=== PATIENT | female | born 1930 | race Caucasian/White ===

== ENCOUNTER 2016-05-26 00:29 | Emergency (ER) | payer MEDICARE, BC ==
[~2016-05-26] VITALS: Ht 147.3 cm; Wt 69.5 kg
[~2016-05-26 00:29] MED LIST: AMITRIPTYLINE H25 M1 PO; AMOXICILLIN 50500 MG PO; ASPIR-LOW81 MG PO; CELEBREX 200MG200 MG PO; CENTRUM1 TAB PO; COMBIGAN 0.2%-010 ML OP; LASIX 40MG TABL40 MG PO; LORTAB 7.5/5001 TAB; LORTAB 7.5/5001 TAB PO; MOBIC15 MG PO; MVI PO; NEXIUM40 MG PO; NIFEREX-150 FOR1 CA1 PO; TOPROL XL 25MG25 MG PO; TOPROL XL25 MG PO; TOPROL XL50 MG PO; TYLENOL 325MG325 MG PO; WOMEN'S ONE DAI1 TAB PO; ZESTRIL 20MG TA20 MG PO
[2016-05-26 00:33] VITALS: TEMP 99.5
[2016-05-26 01:35] VITALS: BP 139/71; PULSE 73
== END 2016-05-26 01:35 | disposition home or self-care (01) ==
LOC: COL.ER 00:29
DX: R22.32 Localized swelling, mass and lump, left upper limb (principal); Z98.890 Other specified postprocedural states

== ENCOUNTER → 2017-04-14 | Outpatient (CLI) | payer MEDICARE, BC ==
[~2017-04-14] MED LIST changes: +NORCO 325 MG-51 TAB PO; +PROTONIX 40MG T40 MG PO; +WOMEN'S DAILY1 TAB PO; -WOMEN'S ONE DAI1 TAB PO; +ZESTRIL 10MG10 MG PO; +ZOFRAN ODT4 MG PO
[2017-04-14 15:35] LABS: CALCIUM 9.8 mg/dL (8.4-10.2); CREATININE, serum 0.63 mg/dL (0.52-1.25); POTASSIUM 4.4 mmol/L (3.4-5.0)
== END ==
LOC: COL.LAB 11:49
PROVIDERS: Family Medicine
DX: I10 Essential (primary) hypertension (principal)

== ENCOUNTER → 2017-04-19 | Outpatient (CLI) | payer MEDICARE, BC | LOC: COL.RAD 12:40 | DX: R22.1 Localized swelling, mass and lump, neck (principal) ==

== ENCOUNTER 2018-08-23 12:34 | Inpatient (IN) | payer MEDICARE, BC ==
[~2018-08-23] VITALS: Ht 142.2 cm; Wt 61.0 kg
[2018-08-23 12:52] VITALS: BP 143/66; PULSE 102; TEMP 97.5
--- NOTE | 2018-08-23 12:55 | NUR ---
admitted ambulatory to room 324, alert and oriented, PARTS WASHER in and initial assessment compelted
--- NOTE | 2018-08-23 13:02 | NUR ---
PJ Dixon notified of patient's arrival,
[2018-08-23] MEDS ORDERED: AMITRIPTYLINE H10 M1 PO (13:10)
[2018-08-23] MEDS ORDERED: NORCO 325 MG-7.1 TAB PO (13:11)
--- NOTE | 2018-08-23 13:20 | NUR ---
full admission assessment completed, see intervention for further info, has area approx 5cm in right hand that is outline with a marker that is light red and also appears to be echymotic, area to right lower leg is has area approx 15cm x 7cm that is red, denies needs at this time
--- NOTE | 2018-08-23 14:50 | NUR ---
c/o back pain and medicated with hydrocodone 7.5mg 1 tab
--- NOTE | 2018-08-23 16:00 | NUR ---
remains sitting up in recliner, LUIS DANIEL Dorsey was in to see patient, she states the pain pill is helping her back pain as it does at home, instructed on how to order something to eat and verbalizes understanding
[2018-08-23 16:02] VITALS: BP 154/80; PULSE 87; TEMP 97.9
--- NOTE | 2018-08-23 16:33 | NUR ---
INT started to Left forearm and she tolerated well
--- NOTE | 2018-08-23 16:34 | NUR ---
LUIS DANIEL Ramachandran with orthopaedic's paged for consult
[2018-08-23 16:41] LABS: BASO # 0.1 (0.0-0.2); BASO % 0.8 % (0.0-2.0); EOS # 0.2 (0.0-0.7); EOS % 2.9 % (0-4.0); GRAN # 4.1 (1.4-6.5); GRAN % 66.1 % (42.2-75.2); HEMATOCRIT 42.8 % (37.0-47.0); HEMOGLOBIN 14.8 g/dl (12.5-16.0); LYMPH # 1.3 (1.2-3.4); LYMPH % 21.5 % (20.0-51.0); MEAN CELL VOLUME 93 fl (80.0-100.0); MEAN CORPUSCULAR HEMOGLOBIN 32 pg (27.0-31.0); MEAN CORPUSCULAR HGB CONC 35 g/dl (33.0-37.0); MEAN PLATELET VOLUME 9.4 fl (7.4-10.4); MONO # 0.5 (0.1-0.6); MONO % 8.5 % (1.7-9.3); PLATELET COUNT 253 K/mm3 (130-400); RED BLOOD COUNT 4.61 M/mm3 (4.10-5.30); REDCELL DISTRIBUTION WIDTH-CV 11.9 % (11.5-14.5)
[2018-08-23 16:45] LABS: ALBUMIN 4.4 gm/dL (3.5-5.0); BILIRUBIN,TOTAL 0.7 mg/dL (0.0-1.0); CALCIUM 9.9 mg/dL (8.4-10.2); CREATININE, serum 0.63 (0.52-1.25); POTASSIUM 3.9 mmol/L (3.4-5.0); TOTAL PROTEIN 7.4 gm/dL (6.4-8.2)
--- NOTE | 2018-08-23 17:14 | NUR ---
LUIS DANIEL Ramachandran in to see patient
--- NOTE | 2018-08-23 17:54 | NUR ---
Dr Chatman in talking with mary
--- NOTE | 2018-08-23 18:36 | NUR ---
assisted up to bathroom and then back to recliner, IV antibiotic here and started
--- NOTE | 2018-08-23 18:48 | NUR ---
bedside shift report given to SARA Linder
[2018-08-23 19:43] VITALS: BP 128/50; PULSE 88; TEMP 98
--- NOTE | 2018-08-23 20:30 | NUR ---
Pt. sitting up in chair at this time. Pt. is A&OX3, assessment complete. INT to lt. wrist patent. Cat bites noted to rt. wrist and rt. urrutia, area marked, redness has decreased since marked. Pt. reports back pain at a 5 on pain scale at this time. Pt. would like pain meds just not yet. Will give when pt. is ready. Pt denies further needs, call light within reach.
[2018-08-24] VITALS (7 sets, daily range): BP systolic 121–163; BP diastolic 52–72; PULSE 61–88; TEMP 97.7–98.1
--- NOTE | 2018-08-24 06:36 | NUR ---
Pt. slept off and on through the night. Pt. remains A&OX3. INT to lt. wrist remains patent. Pt. reports back pain. Pt. informed that it's not time for pain meds, but will brin when available. Pt. voices understanding. Pt. denies further needs, call light within reach.
--- NOTE | 2018-08-24 06:52 | NUR ---
appears to be sleeping, in bed with eyes closed, resp quiet and easy
--- NOTE | 2018-08-24 07:30 | NUR ---
resting in bed c/o back pain and medicated with hydrocodone 7.5mg 1 tab
--- NOTE | 2018-08-24 08:15 | NUR ---
up in chair, denies needs, will order breakfast soon
--- NOTE | 2018-08-24 08:50 | NUR ---
up in chair and appears to be dozing
--- NOTE | 2018-08-24 09:10 | NUR ---
Sunita CARY in to see patient and then occupational therapy in to work with patient
--- NOTE | 2018-08-24 10:12 | NUR ---
full assessment now completed, see interventions for further info, denies needs
--- NOTE | 2018-08-24 12:02 | NUR ---
c/o back pain and some pain to right leg, medicated with hydrocodone 7/5mg 1 tab, assisted up to bathroom
--- NOTE | 2018-08-24 12:06 | NUR ---
Initial visit; Patient thanked [employer] Transition Teacher for looking in on her and offering comfort, empathy and prayer. [employer] And Transition Teacher will follow up.
--- NOTE | 2018-08-24 13:01 | NUR ---
sitting up in chair eating lunch
--- NOTE | 2018-08-24 13:15 | NUR ---
remains up in chair, had lunch and tolerated well, denies needs
--- NOTE | 2018-08-24 14:19 | NUR ---
LETICIA met with the patient and patient's , Nadir, to discuss discharge plan. The patient lives in [place] with her . She reports independence with ADLs and has a walker. The patient's PCP is Dr. Raquel Salazar and she receives her medications from [facility]. She reports no difficulties obtaining her meds. The patient's advanced directives are in EMR. The patient plans to return home with her upon discharge. No additional needs at this time.
--- NOTE | 2018-08-24 14:45 | NUR ---
remains up in chair and denies needs
--- NOTE | 2018-08-24 16:40 | NUR ---
CNAs in and assisted patient onto bedpan to try and void, she was able to void but also had dry smears of stool on rectum and care provided, specimen to lab, only minimal whimpering with movement
--- NOTE | 2018-08-24 18:31 | NUR ---
sitting up in recliner eating supper
--- NOTE | 2018-08-24 18:40 | NUR ---
bedside shift report given to SARA Valladares
--- NOTE | 2018-08-24 20:00 | NUR ---
REPORT RECEIVED. ASSUMED CARE FOR STAFF RESEARCH ASSOCIATE. ASSESSMENT COMPLETE. VS STABLE. C/O PAIN TO IV SITE. REDNESS NOTED-SLIGHT SWELLING. DOES NOT FLUSH WELL AND STATES ITS BURNING. DCD AT THIS TIME-DID AGREE TO HAVE IT RESTARTED FOR NEXT IV ANTIBIOTICS. R HAND THUMB AREA WITH REDNESS-SLIGHT SWELLING. RIGHT LOWER EXTREMITY WITH MARKED REDNESS-SLIGHT SWELLING. TEACHING DONE ON PAINN MEDICATIONS. DENIES QUESTIONS AT THIS TIME.. WILL MONITOR.
[2018-08-25 03:21] VITALS: BP 151/65; PULSE 69; TEMP 97.5
--- NOTE | 2018-08-25 06:40 | NUR ---
appears to be sleeping, bedside shift report received from SARA Valladares
--- NOTE | 2018-08-25 06:46 | NUR ---
ATTEMPTS MADE X3 TO START A NEW IV DUE TO INFILTRATION WITH NO SUCCESS. NOTIFIED SHE[employer] MILL SUPERVISOR TO SEE IF THEY COULD ATTEMPT. STATES THEY WILL BE UP TO TRY IN A FEW MINUTES. WILL MONITOR.
--- NOTE | 2018-08-25 07:12 | NUR ---
sitting up on side of bed, called nurse to room and thinks the redness in her right leg has spread, there is some discoloration but not bright red or streaking, full assessment completed, see interventions for further info, will report the redness to the physician,
[2018-08-25 08:07] VITALS: BP 152/67; PULSE 88; TEMP 98.4
--- NOTE | 2018-08-25 09:15 | NUR ---
remains sitting up on side of bed, c/o pain to back and medicated with hydrocodone 7 .5mg 1 tab, explained to her the Dr will be in later and decide if she is able to go home today
[2018-08-25 10:15] LABS: BASO # 0.1 (0.0-0.2); BASO % 1.1 % (0.0-2.0); EOS # 0.2 (0.0-0.7); EOS % 4.1 % (0-4.0); GRAN # 2.6 (1.4-6.5); GRAN % 58.7 % (42.2-75.2); LYMPH % 23.8 % (20.0-51.0); MEAN CELL VOLUME 94 fl (80.0-100.0); MEAN CORPUSCULAR HEMOGLOBIN 31 pg (27.0-31.0); MEAN CORPUSCULAR HGB CONC 33 g/dl (33.0-37.0); MEAN PLATELET VOLUME 9.3 fl (7.4-10.4); MONO # 0.5 (0.1-0.6); MONO % 12.1 % (1.7-9.3); PLATELET COUNT 222 K/mm3 (130-400); RED BLOOD COUNT 4.46 M/mm3 (4.10-5.30); REDCELL DISTRIBUTION WIDTH-CV 12.2 % (11.5-14.5)
--- NOTE | 2018-08-25 10:43 | NUR ---
Dr Chatman and care team in to see patient, will plan discharge later
[2018-08-25] MEDS ORDERED: DOXYCYCLINE 10100 MG PO (10:44)
--- NOTE | 2018-08-25 11:25 | NUR ---
here and she is ready for discharge, discharge instructions given to patient and her , verbalizes understanding
--- NOTE | 2018-08-25 11:35 | NUR ---
discharged ambulatory
[2018-08-26] MEDS ORDERED: OMNICEF 300MG300 MG PO ×2 (23:54)
== END 2018-08-25 11:35 | disposition home or self-care (01) | DRG 605 ==
LOC: SURG 12:34
PROVIDERS: Physician Assistant; ADMIT Internal Medicine
DX: S81.851A Open bite, right lower leg, initial encounter (principal); L03.115 Cellulitis of right lower limb; W55.01XA Bitten by cat, initial encounter; G89.29 Other chronic pain; M48.00 Spinal stenosis, site unspecified
CPT/HCPCS: 99231-AI; 99239; J1650; J7050

== ENCOUNTER 2018-08-26 22:28 | Emergency (ER) | payer MEDICARE, BC ==
[~2018-08-26] VITALS: Ht 142.2 cm; Wt 62.7 kg
[~2018-08-26 22:28] MED LIST changes: +AMITRIPTYLINE H10 M1 PO; +DOXYCYCLINE 10100 MG PO; +NORCO 325 MG-7.1 TAB PO
[2018-08-26 22:33] VITALS: BP 174/84; TEMP 97.6
[2018-08-26 23:11] LABS: BASO # 0.1 (0.0-0.2); BASO % 0.8 % (0.0-2.0); EOS # 0.2 (0.0-0.7); EOS % 3.7 % (0-4.0); GRAN # 3.8 (1.4-6.5); GRAN % 58.1 % (42.2-75.2); HEMATOCRIT 43.9 % (37.0-47.0); LYMPH # 1.6 (1.2-3.4); LYMPH % 25.2 % (20.0-51.0); MEAN CELL VOLUME 93 fl (80.0-100.0); MEAN CORPUSCULAR HEMOGLOBIN 32 pg (27.0-31.0); MEAN CORPUSCULAR HGB CONC 34 g/dl (33.0-37.0); MEAN PLATELET VOLUME 9.2 fl (7.4-10.4); MONO # 0.8 (0.1-0.6); PLATELET COUNT 258 K/mm3 (130-400); RED BLOOD COUNT 4.72 M/mm3 (4.10-5.30); REDCELL DISTRIBUTION WIDTH-CV 12.2 % (11.5-14.5)
[2018-08-26 23:25] LABS: ALBUMIN 4.4 gm/dL (3.5-5.0); BILIRUBIN,TOTAL 0.5 mg/dL (0.0-1.0); C-REACTIVE PROTEIN 0.5 mg/dL (0.0-0.9); CALCIUM 9.9 mg/dL (8.4-10.2); CREATININE, serum 0.61 (0.52-1.25); POTASSIUM 4.1 mmol/L (3.4-5.0); TOTAL PROTEIN 7.1 gm/dL (6.4-8.2)
[2018-08-26 23:46] LABS: ERYTHROCYTE SEDIMENTATION RATE 2 mm/hr (0-30)
[2018-08-26] MEDS ORDERED: OMNICEF 300MG300 MG PO ×2 (23:54)
[2018-08-27] MEDS ORDERED: FLAGYL500 MG PO (00:08)
[2018-08-27 01:45] VITALS: PULSE 81
== END 2018-08-27 01:45 | disposition home or self-care (01) ==
LOC: COL.ER 22:28
PROVIDERS: Emergency Medicine
DX: S81.851A Open bite, right lower leg, initial encounter (principal); G43.909 Migraine, unspecified, not intractable, without status migrainosus; I10 Essential (primary) hypertension; W55.01XA Bitten by cat, initial encounter
CPT/HCPCS: A4216; J0696; J7030

== ENCOUNTER 2018-11-28 18:37 | Emergency (ER) | payer MEDICARE, BC ==
[~2018-11-28] VITALS: Ht 137.2 cm; Wt 58.2 kg
[~2018-11-28 18:37] MED LIST changes: +FLAGYL500 MG PO; +OMNICEF 300MG300 MG PO
[2018-11-28 19:01] VITALS: TEMP 97.8
[2018-11-28 21:12] LABS: BASO % 0.2 % (0.0-2.0); EOS % 0.3 % (0-4.0); GRAN # 7.1 (1.4-6.5); GRAN % 74.7 % (42.2-75.2); HEMOGLOBIN 14.8 g/dl (12.5-16.0); LYMPH # 1.7 (1.2-3.4); MEAN CELL VOLUME 91 fl (80.0-100.0); MEAN CORPUSCULAR HEMOGLOBIN 31 pg (27.0-31.0); MEAN CORPUSCULAR HGB CONC 34 g/dl (33.0-37.0); MEAN PLATELET VOLUME 9.2 fl (7.4-10.4); MONO # 0.6 (0.1-0.6); MONO % 6.5 % (1.7-9.3); PLATELET COUNT 228 K/mm3 (130-400); RED BLOOD COUNT 4.71 M/mm3 (4.10-5.30); REDCELL DISTRIBUTION WIDTH-CV 12.1 % (11.5-14.5)
[2018-11-28 21:21] LABS: ALANINE AMINOTRANSFERASE < 6 U/L (9-52); ALBUMIN 4.5 gm/dL (3.5-5.0); ALKALINE PHOSPHATASE 74 U/L (50-136); ANION GAP 11 mmol/L (7-16); AST,SGOT 24 U/L (15-37); BILIRUBIN,TOTAL 0.9 mg/dL (0.0-1.0); BLOOD UREA NITROGEN 8 mg/dL (7-17); CALCIUM 9.5 mg/dL (8.4-10.2); CARBON DIOXIDE 22 mmol/L (22-30); CHLORIDE 105 mmol/L (98-107); CREATININE, serum 0.55 (0.52-1.25); GLUCOSE 103 mg/dL (74-106); POTASSIUM 3.9 mmol/L (3.4-5.0); SODIUM 138 mmol/L (137-145); TOTAL PROTEIN 7.4 gm/dL (6.4-8.2)
[2018-11-28 22:03] VITALS: BP 164/82; PULSE 74
== END 2018-11-28 22:45 | disposition home or self-care (01) ==
LOC: COL.ER 18:37
PROVIDERS: Emergency Medicine
DX: F11.23 Opioid dependence with withdrawal (principal); G89.18 Other acute postprocedural pain

== ENCOUNTER → 2019-02-20 | Outpatient (CLI) | payer MEDICARE, BC | LOC: COL.RAD 10:09 | DX: R22.42 Localized swelling, mass and lump, left lower limb (principal) ==